=== PATIENT | male | born 1985 | race Caucasian/White ===

== ENCOUNTER 2016-05-28 16:42 | Emergency (ER) | payer OTHER ==
[2016-05-28] MEDS ORDERED: Sodium Chloride 0.9% 1000 ML 1,000 ML IV STA (16:54)
[2016-05-28] MEDS ORDERED: Transderm Scop 1.5MG Patch TOP ONE (16:56)
[2016-05-28] MEDS ORDERED: ANTIVERT 25 MG PO ONE (16:57)
--- NOTE | 2016-05-28 17:04 | ERPHSYRPT ---
- History of Present Illness Source: patient, family Exam Limitations: no limitations Patient Subjective Stated Complaint: pt co infected foot, had a water valve fall on foot 2 weeks ago and now is infected, and has been seen twice for this, pt also states he is dizzy, lightheaded, and nauseated Triage Nursing Assessment: pt walked in alert, resp easy,cool clammy skin. abd soft, right foot between 3 and 4 toe has open sore with serous drainage and bruising noted Method of Injury: other (dropped object on right foot at work, ) Occurred: this morning (not feeling well), last week (injury), days ago ( infected 3-4 days ago) Quality: constant, aching Severity of Pain-Max: severe Severity of Pain-Current: mild Lower Extremities Pain: foot: left (between 3rd and 4th toes dorsum) Modifying Factors: Improves With: other (palpation) Associated Symptoms: dizzy Hx Tetanus, Diphtheria Vaccination/Date Given: Yes Hx Influenza Vaccination/Date Given: No Hx Pneumococcal Vaccination/Date Given: No Immunizations Up to Date: Yes <BRUNO HARDIN - Last Filed: 05/28/16 18:13> <AMERICO CASILLAS - Last Filed: 05/28/16 19:10> - History of Present Illness Time Seen by Provider: 05/28/16 16:44 Physician History: patient complaining of not feeling well today; some dizziness and vertigo; mild non-specific RICHEY; no neck pain; a sore throat; no travel; no knonw exposures; no documented fever; some chills; dropped a valve on his right foot several days ago; xr negative;became infected 3-4 days ago; started on ATBs; wound closed; yesterday he squeezed it and got some purulent drainage; less pain now; nausea without emesis; (BRUNO HARDIN) Allergies/Adverse Reactions: Iodinated Contrast Media - Oral and [Iodinated Contrast Media - IV Dye] Allergy (Verified 05/28/16 16:59) Penicillins Allergy (Verified 05/28/16 16:59) Sulfa (Sulfonamide Antibiotics) Allergy (Verified 05/28/16 16:59) ketorolac tromethamine [From Toradol] Adverse Reaction (Intermediate, Verified 05/28/16 16:59) Muscle Aches tramadol Adverse Reaction (Intermediate, Verified 05/28/16 16:59) Muscle Aches Home Medications: Hydrocodone Bit/Acetaminophen [[place] 7.5-325 Tablet] 1 ea TID 05/28/16 [History] Levofloxacin [Levaquin] 750 mg DAILY 05/28/16 [History] - Review of Systems Constitutional: Chills, Other (dizzy and vertigo with Nausea) Eyes: No Symptoms Ears, Nose, & Throat: Throat Pain, No Ear Pain, No Tinnitus, No Nose Pain, No Epistaxis Respiratory: No Cough, No Dyspnea, No Wheezing Cardiac: No Chest Pain, No Palpitations, No Syncope Abdominal/Gastrointestinal: Nausea, No Abdominal Pain, No Vomiting, No Diarrhea Genitourinary Symptoms: No Symptoms Musculoskeletal: Injury (right foot), No Back Pain, No Neck Pain, No Fall, No Joint Redness Skin: Other (laceration right foot distal between 3-4th toes) Neurological: Dizziness, Headache, Vertigo, No Focal Weakness, No Irritability, No Lethargy, No Paralysis, No Parasthesia, No Seizure Psychological: No Symptoms Endocrine: No Symptoms Hematologic/Lymphatic: No Symptoms Immunological/Allergic: No Symptoms <BRUNO HARDIN - Last Filed: 05/28/16 18:13> - Past Medical History Pertinent Past Medical History: Yes GI Medical History: Hernia, Irritable Bowel Psycho-Social History: Anxiety, Depression - Past Surgical History Past Surgical History: Yes Gastrointestinal: Hernia Repair - Social History Smoking Status: Never smoker Exposure to second hand smoke: No Alcohol Use: Socially Drug Use: none Patient Lives Alone: No Significant Family History: no pertinent family hx <BRUNO HARDIN - Last Filed: 05/28/16 18:13> - Physical Exam General Appearance: moderate distress (not feeling well), alert, anxiety, thin Eyes, Ears, Nose, Throat Exam: normal ENT inspection, TMs normal, pharynx normal , moist mucous membranes Neck Exam: normal inspection, non-tender, supple, full range of motion, No Kernig's, No meningismus, No carotid bruit Cardiovascular/Respiratory Exam: normal breath sounds, heart sounds normal, no ecchymosis, no JVD, no M/R/G, no respiratory distress, tachycardia (105), No chest non-tender, No regular rate/rhythm Gastrointestinal/Abdominal Exam: non-tender, soft, no organomegaly Back Exam: normal inspection, normal range of motion, No CVA tenderness, No vertebral tenderness Hips Exam: bilateral: non-tender, normal inspection, normal range of motion, no evidence of injury Legs Exam: bilateral leg: non-tender, normal inspection, normal range of motion , no evidence of injury Knees Exam: bilateral knee: non-tender, normal inspection, normal range of motion, no evidence of injury Ankle Exam: bilateral ankle: non-tender, normal inspection, normal range of motion, no evidence of injury Foot Exam: right foot: abrasions/lacerations (distal dorsum baase 3-4th toes), left foot: non-tender, normal inspection, no evidence of injury, bilateral foot : normal range of motion, other (no red streaks) DTR - Lower Extremities Exam: knee (R): 4+, knee (L): 4+ Neuro/Tendon Exam: normal sensation, normal motor functions, normal tendon functions, responds to pain Mental Status Exam: alert, oriented x 3, cooperative Skin Exam: normal color, warm, dry, No rash SpO2 Interpretation: normal SpO2: 97 Oxygen Delivery: Room Air <BRUNO HARDIN - Last Filed: 05/28/16 18:13> - Course Nursing assessment & vital signs reviewed: Yes <BRUNO HARDIN - Last Filed: 05/28/16 18:13> <AMERICO CASILLAS - Last Filed: 05/28/16 19:10> Ordered Tests: Active Orders 24 hr Category Date Time Status Accucheck STAT Care 05/28/16 16:54 Active IV Insertion STAT Care 05/28/16 16:54 Active Orthostatic Vital Signs STAT Care 05/28/16 16:56 Active Pulse Oximetry (ED) STAT Care 05/28/16 16:54 Active Re-Check Vital Signs STAT Care 05/28/16 16:54 Active CHEST 1 VIEW (PORTABLE) Stat Exams 05/28/16 16:55 Taken BLOOD CULTURE Stat Lab 05/28/16 17:15 Received CBC W DIFF Stat Lab 05/28/16 17:15 Completed CMP Stat Lab 05/28/16 17:15 Completed CULTURE, THROAT Stat Lab 05/28/16 17:15 Received CULTURE,WOUND Stat Lab 05/28/16 17:15 Received Lactic Acid Urgent Lab 05/28/16 17:28 Completed Manual Differential NC Stat Lab 05/28/16 17:15 Completed STREP SCREEN-BETA A Stat Lab 05/28/16 17:15 Completed UA Stat Lab 05/28/16 17:45 Completed Medication Summary Discontinued Medications Generic Name Dose Route Start Last Admin Trade Name Sherice PRN Reason Stop Dose Admin Sodium Chloride 1,000 mls @ 999 mls/hr 05/28/16 16:54 05/28/16 17:09 Sodium Chloride 0.9% 1000 Ml IV 05/28/16 17:54 999 mls/hr .Q1H1M STA Administration Sodium Chloride Confirm 05/28/16 17:06 Sodium Chloride 0.9% 1000 Ml Administered 05/28/16 17:07 Dose 1,000 mls @ ud .ROUTE .STK-MED ONE Meclizine HCl 25 mg 05/28/16 16:57 05/28/16 17:09 Antivert 25 Mg PO 05/28/16 16:58 25 mg STAT ONE Administration Meclizine HCl Confirm 05/28/16 17:06 Antivert 25 Mg Administered 05/28/16 17:07 Dose 25 mg .ROUTE .STK-MED ONE Ondansetron HCl Confirm 05/28/16 17:06 Zofran 4 Mg/2 Ml Vial Administered 05/28/16 17:07 Dose 4 mg .ROUTE .STK-MED ONE Ondansetron HCl 4 mg 05/28/16 17:15 05/28/16 17:17 Zofran 4 Mg/2 Ml Vial IV 05/28/16 17:16 4 mg STAT ONE Administration Scopolamine HBr 1.5 mg 05/28/16 16:56 05/28/16 17:13 Transderm Scop 1.5mg Patch TOP 05/28/16 16:57 1.5 mg STAT ONE Administration Lab/Rad Data: Laboratory Result Diagrams 05/28/16 17:15 05/28/16 17:15 Laboratory Results 05/28/16 05/28/16 05/28/16 Range/Units 17:45 17:28 17:15 WBC (4.0-10.5) K/mm3 RBC (4.1-5.6) M/mm3 Hgb (12.5-18.0) gm/dl Hct (42-50) % MCV (78-100) fl MCH (26-32) pg MCHC (32-36) g/dl RDW (11.5-14.0) % Plt Count (150-450) K/mm3 MPV (6-9.5) fl Sodium (136-145) mEq/L Potassium (3.5-5.1) mEq/L Chloride (98-107) mEq/L Carbon Dioxide (21-32) mEq/L Anion Gap (5-15) MEQ/L BUN (9-20) mg/dL Creatinine (0.55-1.30) mg/dl Estimated GFR ML/MIN Glucose (70-110) MG/DL Lactic Acid 2.5 H (0.4-2.0) Calcium (8.5-10.1) mg/dL Total Bilirubin (0.2-1.0) mg/dL AST (15-37) U/L ALT (12-78) U/L Alkaline Phosphatase (46-116) U/L Serum Total Protein (6.4-8.2) gm/dL Albumin (3.4-5.0) g/dL Ur Collection Type CLEAN CATCH Urine Color YELLOW (YELLOW) Urine Appearance CLEAR (CLEAR) Urine pH 5.5 (5-6) Ur Specific [place] >=1.030 (1.005-1.025) Urine Protein NEGATIVE (Negative) Urine Glucose (UA) 100 (NEGATIVE) mg/dL Urine Ketones NEGATIVE (NEGATIVE) Urine Nitrite NEGATIVE (NEGATIVE) Urine Bilirubin NEGATIVE (NEGATIVE) Urine Urobilinogen 0.2 (0-1) mg/dL Urine WBC (Auto) NEGATIVE (NEGATIVE) Urine RBC (Auto) NEGATIVE (0-5) [place]/ul Influenza Type A Ag NEGATIVE (NEGATIVE) Influenza Type B Ag NEGATIVE (NEGATIVE) RSV (PCR) NEGATIVE (Negative) Streptococcus Screen (Negative) Specimen Received 05/28/16:1745 05/28/16 05/28/16 05/28/16 Range/Units 17:15 17:15 17:15 WBC 10.0 (4.0-10.5) K/mm3 RBC 5.67 H (4.1-5.6) M/mm3 Hgb 16.6 (12.5-18.0) gm/dl Hct 48.2 (42-50) % MCV 85.0 (78-100) fl MCH 29.2 (26-32) pg MCHC 34.4 (32-36) g/dl RDW 13.0 (11.5-14.0) % Plt Count 301 (150-450) K/mm3 MPV 10.2 H (6-9.5) fl Sodium 144 (136-145) mEq/L Potassium 3.2 L (3.5-5.1) mEq/L Chloride 104 (98-107) mEq/L Carbon Dioxide 25.6 (21-32) mEq/L Anion Gap 17.2 H (5-15) MEQ/L BUN 21 H (9-20) mg/dL Creatinine 1.18 (0.55-1.30) mg/dl Estimated GFR > 60 ML/MIN Glucose 162 H (70-110) MG/DL Lactic Acid (0.4-2.0) Calcium 9.1 (8.5-10.1) mg/dL Total Bilirubin 0.6 (0.2-1.0) mg/dL AST 12 L (15-37) U/L ALT 14 (12-78) U/L Alkaline Phosphatase 71 (46-116) U/L Serum Total Protein 7.7 (6.4-8.2) gm/dL Albumin 3.8 (3.4-5.0) g/dL Ur Collection Type Urine Color (YELLOW) Urine Appearance (CLEAR) Urine pH (5-6) Ur Specific [place] (1.005-1.025) Urine Protein (Negative) Urine Glucose (UA) (NEGATIVE) mg/dL Urine Ketones (NEGATIVE) Urine Nitrite (NEGATIVE) Urine Bilirubin (NEGATIVE) Urine Urobilinogen (0-1) mg/dL Urine WBC (Auto) (NEGATIVE) Urine RBC (Auto) (0-5) [place]/ul Influenza Type A Ag (NEGATIVE) Influenza Type B Ag (NEGATIVE) RSV (PCR) (Negative) Streptococcus Screen NEGATIVE (Negative) Specimen Received reviewed (BRUNO HARDIN) - Progress Progress: improved (after meds and IV fluids), re-examined (after meds) Counseled pt/family regarding: lab results, diagnosis, need for follow-up <BRUNO HARDIN - Last Filed: 05/28/16 18:13> <AMERICO CASILLAS - Last Filed: 05/28/16 19:10> - Progress Progress Note: 05/28/16 17:10 IV started; OSVS done with slight increase in pulse; no drop in BP; will give IV bolus of fluid; place a TDS patch and give antivert and zofran and recheck; labs pending;cultures obtained 05/28/16 17:40 rechecked and lactic acid 2.5; GIVING IV FLuid bolus; patient still dizzy when gets up but better; feels better in general after 300 cc fluid and meds; will continue IV fluids and recheck; other labs and xr pending 05/28/16 17:43 CBC wbc = 10.0; h/h = 16.6/48.2 05/28/16 18:14 [place] here and will assume care and arrange appropriate d/c based on recheck and labs (BRUNO HARDIN) 05/28/16 19:01 The patient was initially seen per Dr Hardin. He had foot injury with normal xray then had abscess, drained and on levaquin. Today he has ringing in left ear , vertiginous dizziness, nausea. Was pale and sweaty so was brought to ER. Better now with IVF and zofran and antivert and scopolamine. No headache or chest pain. No fever. [place] hot at home. No hx of DM but has fam hx. PE: Awake and alert. PERRL. No nystagmus. O-P clear with bifid uvula. Neck supple. TM's normal. Neck supple. Chest clear. Cor reg without murmur. Abd soft and nontender. Normal male genitalia. 2+ femoral pulses. Extermities have small excoriated lesion with bloody drng right foot. No redness or large abscess. Neuro: awake and alert. normal station and gait. Normal tandem walk, toe walk, heel walk. Negative rhomberg. A/P:1) resolving small abscess right foot on levaquin. No sign of systemic infection. Continue epson salt soaks and levaquin. 2) vertigo: possible meniere's. Advised watch salt, scopalamine, antivert, and followup. May need ENT. NEuro imaging not indicated. Plan discussed with pt and family. 3) hyperglycemia/glucosuria. A1C pending. Advised follow up for further glucose testing. (AMERICO CASILLAS) <BRUNO HARDIN - Last Filed: 03/06/17 18:13> - Departure Time of Disposition: 19:06 Departure Disposition: Home Critical Care Time: No <AMERICO CASILLAS - Last Filed: 05/28/16 19:10> - Departure Clinical Impression: Vertigo, Foot abscess, right, Borderline hyperglycemia Condition: Stable Referrals: ELISE SAUER [NON-STAFF PHY W/O PRIVILEGES] - Instructions: Vertigo, Incision and Drainage of a Skin Abscess Additional Instructions: No driving and stay with family. Watch salt. Get your sugar rechecked. Epson slat soaks to foot three times a day. Continue levaquin. Rx antivert. Rx scopalamine patch. Prescriptions: Meclizine HCl 25 mg [Antivert 25 mg] 1 tab PO Q6H PRN PRN #24 tablet PRN Reason: dizziness
[2016-05-28] MEDS ORDERED: ANTIVERT 25 MG ONE (17:06)
[2016-05-28] MEDS ORDERED: Zofran 4 MG/2 ML VIAL ONE (17:06)
[2016-05-28] MEDS ORDERED: Sodium Chloride 0.9% 1000 ML 1,000 ML ONE (17:06)
[2016-05-28] MEDS ORDERED: Zofran 4 MG/2 ML VIAL IV ONE (17:15)
[2016-05-28 17:37] LABS: Mean Platelet Volume 10.2 fl (6-9.5); Platelet Count 301 K/mm3 (150-450); Red Blood Count 5.67 M/mm3 (4.1-5.6)
[2016-05-28 17:39] LABS: Mean Corpuscular Hemoglobin 29.2 pg (26-32)
[2016-05-28 17:53] LABS: ALBUMIN 3.8 g/dL (3.4-5.0); ALKALINE PHOSPHATASE 71 U/L (46-116); ANION GAP 17.2 MEQ/L (5-15); BILIRUBIN,TOTAL 0.6 mg/dL (0.2-1.0); BLOOD UREA NITROGEN 21 mg/dL (9-20); CHLORIDE 104 mEq/L (98-107); Carbon Dioxide 25.6 mEq/L (21-32); Glucose 162 MG/DL (70-110); Potassium 3.2 mEq/L (3.5-5.1); SGOT/AST 12 U/L (15-37); SGPT/ALT 14 U/L (12-78); SODIUM 144 mEq/L (136-145); Total Protein 7.7 gm/dL (6.4-8.2)
[2016-05-28 17:53] LABS: COMPLETE URINE MICROSCOPIC? NO; Collection Type CLEAN CATCH; Ph 5.5 (5-6)
[2016-05-28 18:17] VITALS: O2SAT 98
[2016-05-28 19:23] VITALS: BP 142/68; PULSE 90
[2016-05-28 19:31] LABS: ATYPICAL LYMPHS 2 %; Eosinophil 5 % (0.00-3.0); Platelet Estimate NORMAL (NORMAL); Total Cells Counted 100
--- NOTE | 2016-05-29 08:36 | XRAY ---
Indication: Fever and cough. Comparison: March 16, 2016. Portable chest again demonstrates normal heart and lungs. Bony thorax intact.
== END 2016-05-28 19:29 | disposition home or self-care (01) ==
LOC: ED 16:42
DX: R42 Dizziness and giddiness (principal); L02.611 Cutaneous abscess of right foot; R73.9 Hyperglycemia, unspecified; R11.0 Nausea
CPT/HCPCS: 36000; 36415; 71010; 80053; 81002; 82962; 83036; 83605; 85025; 87040; 87070; 87077; 87186; 87430; 87631; 96360; 96374; 99284; J2405

== ENCOUNTER 2016-11-30 07:34 | Emergency (ER) | payer OTHER ==
[2016-11-30 07:46] VITALS: BP 140/90
[2016-11-30] MEDS ORDERED: Augmentin 875-125 Tablet PO ONE (08:03)
[2016-11-30] MEDS ORDERED: NORCO 5/325 MG PO ONE (08:03)
[2016-11-30] MEDS ORDERED: Augmentin 875-125 Tablet ONE (08:08)
[2016-11-30] MEDS ORDERED: NORCO 5/325 MG ONE (08:08)
--- NOTE | 2016-11-30 08:11 | ERPHSYRPT ---
- History of Present Illness Time Seen by Provider: 11/30/16 08:04 Source: patient Patient Subjective Stated Complaint: had tooth pulled 2 1/2 weeks ago on lower right side and had dry socket and infection, pt now co pain to mouth.states aches all over Triage Nursing Assessment: pt alert,walked in, resp easy, skin w/d no reddness or drainage ntoed Physician History: 31 y/o male comes to the ER with complaints of lower right tooth pain after having the tooth pulled 1.5 weeks ago. Pt admits to still having pain. Pt describes the pain as sharp, constant, 8/10, with radiation to sinuses and not relieved by one vicodin. No fever or chills. Timing/Duration: gradual onset Severity: severe ENT Location: dental Allergies/Adverse Reactions: Iodinated Contrast- Oral and IV Dye [Iodinated Contrast Media - IV Dye] Allergy (Verified 11/30/16 08:02) Penicillins Allergy (Verified 11/30/16 08:02) Sulfa (Sulfonamide Antibiotics) Allergy (Verified 11/30/16 08:02) ketorolac tromethamine [From Toradol] Adverse Reaction (Intermediate, Verified 11/30/16 08:02) Muscle Aches tramadol Adverse Reaction (Intermediate, Verified 11/30/16 08:02) Muscle Aches Home Medications: Hydrocodone Bit/Acetaminophen [[place] 7.5-325 Tablet] 1 ea TID 05/28/16 [History] Levofloxacin [Levaquin] 750 mg DAILY 05/28/16 [History] Hx Tetanus, Diphtheria Vaccination/Date Given: Yes Hx Influenza Vaccination/Date Given: No Hx Pneumococcal Vaccination/Date Given: No Immunizations Up to Date: Yes - Review of Systems Constitutional: No Fever, No Chills Eyes: No Symptoms Ears, Nose, & Throat: No Symptoms, Mouth Pain Respiratory: No Cough, No Dyspnea Cardiac: No Chest Pain, No Edema, No Syncope Abdominal/Gastrointestinal: No Abdominal Pain, No Nausea, No Vomiting, No Diarrhea Genitourinary Symptoms: No Dysuria Musculoskeletal: No Back Pain, No Neck Pain Skin: No Rash Neurological: No Dizziness, No Focal Weakness, No Sensory Changes Psychological: No Symptoms Endocrine: No Symptoms All Other Systems: Reviewed and Negative - Past Medical History Pertinent Past Medical History: Yes GI Medical History: Hernia, Irritable Bowel Psycho-Social History: Anxiety, Depression Other Medical History: mrsa - Past Surgical History Past Surgical History: Yes Gastrointestinal: Hernia Repair - Social History Smoking Status: Never smoker Exposure to second hand smoke: No Alcohol Use: Socially Drug Use: none Patient Lives Alone: No Significant Family History: no pertinent family hx - Nursing Vital Signs Nursing Vital Signs: Initial Vital Signs Temperature 98.3 F 11/30/16 07:39 Pulse Rate 98 H 11/30/16 07:39 Respiratory Rate 16 11/30/16 07:39 Blood Pressure 140/90 11/30/16 07:39 O2 Sat by Pulse Oximetry 100 11/30/16 07:39 Pain Scale Pain Intensity 10 - Physical Exam General Appearance: no apparent distress, alert Eye Exam: bilateral eye: PERRL, EOMI Nasal Exam: normal inspection Throat Exam: pharynx normal, dental tenderness, moist mucus membranes, No tonsillar exudate Neck Exam: supple Cardiovascular/Respiratory Exam: normal breath sounds, regular rate/rhythm Abdominal Exam: non-tender, soft Neurologic Exam: alert, oriented x 3, sensation nml, No motor deficits Skin Exam: normal color, warm, dry SpO2: 100 Oxygen Delivery: Room Air - Course Nursing assessment & vital signs reviewed: Yes Ordered Tests: Medication Summary Discontinued Medications Generic Name Dose Route Start Last Admin Trade Name Freq PRN Reason Stop Dose Admin Amoxicillin/Clavulanate Potassium 875 mg 11/30/16 08:03 Augmentin 875-125 Tablet PO 11/30/16 08:04 STAT ONE - Progress Progress: unchanged Progress Note: 11/30/16 08:08 Pt will be given a dose of augmentin and a dose of norco. We called the dentist office and patient has been prescribed multiple scripts for vicodin. Pt will be given a referral to diesel scoop operator, Dr Quintanilla for further evaluation. - Departure Time of Disposition: 08:11 Departure Disposition: Home Clinical Impression: Tooth infection Condition: Stable Critical Care Time: No Referrals: ELISE SAUER [Primary Care Provider] - Instructions: Tooth Decay Additional Instructions: Call Dr Patricia Quintanilla, diesel scoop operator in [place] this morning. Prescriptions: Amoxicillin/Potassium Clav [Augmentin 875-125 Tablet] 875 mg PO BID #19 tablet
[2016-11-30 08:22] VITALS: PULSE 70; O2SAT 97
== END 2016-11-30 08:24 | disposition home or self-care (01) ==
LOC: ED 07:34
DX: K04.7 Periapical abscess without sinus (principal)
CPT/HCPCS: 99283; 99284; A9270-GY

== ENCOUNTER 2018-06-20 08:00 | Observation (INO) | payer OTHER ==
[2018-06-20] MEDS ORDERED: Sodium Chloride 0.9% 1000 ML 1,000 ML IV STA ×2 (08:10→10:23)
[2018-06-20] MEDS ORDERED: Ativan 2 MG/1 ML VIAL IV ONE ×3 (08:16→09:02)
[2018-06-20 08:23] LABS: BASOPHIL % 0.2 % (0.0-0.4); Basophil (Absolute #) 0.02 (0-0.4); Eosinophil (Absolute #) 0.18 (0-0.5); Granulocyte Absolute (ANC) 6.42 (1.4-6.9); Granulocytes % 71.6 % (36.0-66.0); Hematocrit 42.4 % (42-50); Hemoglobin 14.4 gm/dl (12.5-18.0); Lymphocyte (Absolute #) 1.78 (1.0-4.6); Lymphocytes % 19.9 % (24.0-44.0); Mean Cell Volume 84.5 fl (78-100); Mean Corpuscular Hemoglobin 28.7 pg (26-32); Mean Platelet Volume 9.7 fl (6-9.5); Monocyte (Absolute #) 0.56 (0.0-1.3); Monocytes % 6.3 % (0.0-12.0); Platelet Count 269 K/mm3 (150-450); Red Blood Count 5.02 M/mm3 (4.1-5.6); Red Cell Distribution Width 13.4 % (11.5-14.0)
[2018-06-20] MEDS ORDERED: Ativan 2 MG/1 ML VIAL ONE ×3 (08:30→08:55)
[2018-06-20] MEDS ORDERED: Sodium Chloride 0.9% 1000 ML 1,000 ML ONE ×2 (08:31→10:16)
[2018-06-20 08:32] LABS: INR 1.24 (0.8-3.0); PROTIME 14.4 SECONDS (8.83-12.87)
[2018-06-20 08:40] LABS: Appearance SLIGHTLY CLOUDY (CLEAR); Bacteria FEW /HPF (NEGATIVE); Bilirubin NEGATIVE (NEGATIVE); Blood NEGATIVE Ery/ul (0-5); Epithelial Cells FEW /HPF (FEW); Glucose NEGATIVE (NEGATIVE); Ketones SMALL (NEGATIVE); Leukocyte Esterase NEGATIVE (NEGATIVE); Mucus MODERATE /HPF (NEGATIVE); Nitrite NEGATIVE (NEGATIVE); Protein,Urine Dip 30 (Negative); Specific Gravity 1.027 (1.005-1.025); Urobilinogen 2 mg/dL (0-1)
[2018-06-20 08:41] LABS: Sperm PRESENT /HPF (NEGATIVE)
--- NOTE | 2018-06-20 08:42 | ERPHSYRPT ---
- History of Present Illness Time Seen by Provider: 06/20/18 08:30 Source: patient Exam Limitations: clinical condition Physician History: PATIENT WITH A HISTORY OF POLYSUBSTANCE WAS FOUND IN A [place]IDENT[place]S [place] THIS MORNING WHO CALLED POLICE TO HER HOME. PATIENT HAS BEEN HAVING AUDIBLE AND VISUAL HALLUCINATIONS AND IS NOT AWARE OF HOW HE ARRIVED AT THE PREMISES. HE DENIES ASSOCIATE FALL, TRAUMA, HEAD OR NECK INJURY. Timing/Duration: today Severity of Symptoms-Max: severe Severity of Symptoms-Current: severe Context related to: other (SUBSTANCE ABUSE) Suicidal thoughts: other (CHURPING LIKE A CHICKEN) Allergies/Adverse Reactions: Iodinated Contrast- Oral and IV Dye [Iodinated Contrast Media - IV Dye] Allergy (Verified 11/30/16 08:02) Penicillins Allergy (Verified 11/30/16 08:02) Sulfa (Sulfonamide Antibiotics) Allergy (Verified 11/30/16 08:02) ketorolac tromethamine [From Toradol] Adverse Reaction (Intermediate, Verified 11/30/16 08:02) Muscle Aches tramadol Adverse Reaction (Intermediate, Verified 11/30/16 08:02) Muscle Aches Home Medications: Hydrocodone Bit/Acetaminophen [[place] 7.5-325 Tablet] 1 ea TID 05/28/16 [History] Levofloxacin [Levaquin] 750 mg DAILY 05/28/16 [History] Hx Tetanus, Diphtheria Vaccination/Date Given: Yes Hx Influenza Vaccination/Date Given: No Hx Pneumococcal Vaccination/Date Given: No - Past Medical History Pertinent Past Medical History: Yes GI Medical History: Hernia, Irritable Bowel Psycho-Social History: Anxiety, Depression Other Medical History: mrsa - Past Surgical History Past Surgical History: Yes Gastrointestinal: Hernia Repair - Social History Smoking Status: Never smoker Exposure to second hand smoke: No Alcohol Use: Socially Drug Use: none Patient Lives Alone: No Significant Family History: no pertinent family hx - Nursing Vital Signs Nursing Vital Signs: Initial Vital Signs Temperature 98.7 F 06/20/18 08:05 Pulse Rate 120 H 06/20/18 08:05 Respiratory Rate 24 06/20/18 08:05 Blood Pressure 148/92 06/20/18 08:05 O2 Sat by Pulse Oximetry 98 06/20/18 08:05 Pain Scale Pain Intensity 0 - Course EKG Interpreted by Me: RATE, Sinus Rhythm, NORMAL AXIS - Radiology Exams Chest X-ray Interpretation: Discussed w/ radiologist, Negative - CT Exams Head CT Interpretation: Discussed w/radiologist, No/Intracranial Hemorrhag Ordered Tests: Active Orders 24 hr Category Date Time Status Shoe Repair Cobbler STAT Care 06/20/18 08:11 Active EKG-ER Only STAT Care 06/20/18 08:10 Active Oxygen-ED Only Nasal Cannula 2 lpm Care 06/20/18 08:17 Active CHEST 1 VIEW (PORTABLE) Stat Exams 06/20/18 08:12 Completed HEAD WITHOUT CONTRAST [CT] Stat Exams 06/20/18 08:47 Completed ACETAMINOPHEN Stat Lab 06/20/18 08:15 Completed CBC W DIFF Stat Lab 06/20/18 08:15 Completed CMP Stat Lab 06/20/18 08:15 Completed ETHYL ALCOHOL Stat Lab 06/20/18 08:15 Completed PROTIME WITH INR Stat Lab 06/20/18 08:15 Completed SALICYLATE Stat Lab 06/20/18 08:15 Completed TROPONIN Q3H Lab 06/20/18 08:15 Completed TROPONIN Q3H Lab 06/20/18 11:15 Ordered TROPONIN Q3H Lab 06/20/18 14:15 Ordered TROPONIN Q3H Lab 06/20/18 17:15 Ordered TROPONIN Q3H Lab 06/20/18 20:15 Ordered UA W/RFX UR CULTURE Stat Lab 06/20/18 08:32 Completed Urine Triage Profile Stat Lab 06/20/18 08:32 Completed Medication Summary Discontinued Medications Generic Name Dose Route Start Last Admin Trade Name Freq PRN Reason Stop Dose Admin Sodium Chloride 1,000 mls @ 999 mls/hr 06/20/18 08:10 06/20/18 09:50 Sodium Chloride 0.9% 1000 Ml IV 06/20/18 09:10 Infused .Q1H1M STA Infusion Sodium Chloride Confirm 06/20/18 08:31 Sodium Chloride 0.9% 1000 Ml Administered 06/20/18 08:32 Dose 1,000 mls @ ud .ROUTE .STK-MED ONE Lorazepam 2 mg 06/20/18 08:16 06/20/18 08:36 Ativan 2 Mg/1 Ml Vial IV 06/20/18 08:17 2 mg STAT ONE Administration Lorazepam Confirm 06/20/18 08:30 Ativan 2 Mg/1 Ml Vial Administered 06/20/18 08:31 Dose 2 mg .ROUTE .STK-MED ONE Lorazepam 4 mg 06/20/18 08:42 06/20/18 08:48 Ativan 2 Mg/1 Ml Vial IV 06/20/18 08:43 4 mg STAT ONE Administration Lorazepam Confirm 06/20/18 08:46 Ativan 2 Mg/1 Ml Vial Administered 06/20/18 08:47 Dose 4 mg .ROUTE .STK-MED ONE Lorazepam Confirm 06/20/18 08:55 Ativan 2 Mg/1 Ml Vial Administered 06/20/18 08:56 Dose 4 mg .ROUTE .STK-MED ONE Lorazepam 4 mg 06/20/18 09:02 Ativan 2 Mg/1 Ml Vial IV 06/20/18 09:03 STAT ONE Lab/Rad Data: Laboratory Result Diagrams 06/20/18 08:15 06/20/18 08:15 Laboratory Results 06/20/18 06/20/18 06/20/18 Range/Units 08:32 08:32 08:15 WBC (4.0-10.5) K/mm3 RBC (4.1-5.6) M/mm3 Hgb (12.5-18.0) gm/dl Hct (42-50) % MCV (78-100) fl MCH (26-32) pg MCHC (32-36) g/dl RDW (11.5-14.0) % Plt Count (150-450) K/mm3 MPV (6-9.5) fl Gran % (36.0-66.0) % Eos # (Auto) (0-0.5) Absolute Lymphs (auto) (1.0-4.6) Absolute Monos (auto) (0.0-1.3) Lymphocytes % (24.0-44.0) % Monocytes % (0.0-12.0) % Eosinophils % (0.00-5.0) % Basophils % (0.0-0.4) % Absolute Granulocytes (1.4-6.9) Basophils # (0-0.4) PT (8.83-12.87) SECONDS INR (0.8-3.0) Sodium (137-145) mmol/L Potassium (3.5-5.1) mmol/L Chloride (98-107) mmol/L Carbon Dioxide (22-30) mmol/L Anion Gap (5-15) MEQ/L BUN (9-20) mg/dL Creatinine (0.66-1.25) mg/dL Estimated GFR ML/MIN Glucose (74-106) mg/dL Calcium (8.4-10.2) mg/dL Total Bilirubin (0.2-1.3) mg/dL AST (17-59) U/L ALT (0-50) U/L Alkaline Phosphatase (38-126) U/L Troponin I < 0.012 (0.000-0.034) ng/mL Serum Total Protein (6.3-8.2) g/dL Albumin (3.5-5.0) g/dL Urine Color YELLOW (YELLOW) Urine Appearance SLIGHTLY CLOUDY (CLEAR) Urine pH 5.0 (5-6) Ur Specific [place] 1.027 (1.005-1.025) Urine Protein 30 (Negative) Urine Ketones SMALL (NEGATIVE) Urine Blood NEGATIVE (0-5) Haja/ul Urine Nitrite NEGATIVE (NEGATIVE) Urine Bilirubin NEGATIVE (NEGATIVE) Urine Urobilinogen 2 (0-1) mg/dL Ur Leukocyte Esterase NEGATIVE (NEGATIVE) Urine WBC (Auto) 3-5 (0-5) /HPF Urine RBC (Auto) 6-10 (0-2) /HPF U Hyaline Cast (Auto) 3-5 (0-2) /LPF U Epithel Cells (Auto) FEW (FEW) /HPF Urine Bacteria (Auto) FEW (NEGATIVE) /HPF Other Casts (Auto) >50 (NEGATIVE) /LPF Urine Mucus (Auto) MODERATE (NEGATIVE) /HPF Urine Sperm (Auto) PRESENT (NEGATIVE) /HPF Urine Culture Reflexed NO (NO) Urine Glucose NEGATIVE (NEGATIVE) mg/dL Salicylates (2-20) mg/dL Urine Opiates Level NEGATIVE (NEGATIVE) Ur Methadone NEGATIVE (NEGATIVE) Acetaminophen (10-30) ug/ml Urine Barbiturates NEGATIVE (NEGATIVE) Ur Phencyclidine (PCP) NEGATIVE (NEGATIVE) Urine Amphetamine POSITIVE (NEGATIVE) U Benzodiazepine Level NEGATIVE (NEGATIVE) Urine Cocaine NEGATIVE (NEGATIVE) Urine Marijuana (THC) NEGATIVE (NEGATIVE) Ethyl Alcohol (0-10) mg/dL 06/20/18 06/20/18 06/20/18 Range/Units 08:15 08:15 08:15 WBC 9.0 (4.0-10.5) K/mm3 RBC 5.02 (4.1-5.6) M/mm3 Hgb 14.4 (12.5-18.0) gm/dl Hct 42.4 (42-50) % MCV 84.5 (78-100) fl MCH 28.7 (26-32) pg MCHC 34.0 (32-36) g/dl RDW 13.4 (11.5-14.0) % Plt Count 269 (150-450) K/mm3 MPV 9.7 H (6-9.5) fl Gran % 71.6 H (36.0-66.0) % Eos # (Auto) 0.18 (0-0.5) Absolute Lymphs (auto) 1.78 (1.0-4.6) Absolute Monos (auto) 0.56 (0.0-1.3) Lymphocytes % 19.9 L (24.0-44.0) % Monocytes % 6.3 (0.0-12.0) % Eosinophils % 2.0 (0.00-5.0) % Basophils % 0.2 (0.0-0.4) % Absolute Granulocytes 6.42 (1.4-6.9) Basophils # 0.02 (0-0.4) PT 14.4 H (8.83-12.87) SECONDS INR 1.24 (0.8-3.0) Sodium 144 (137-145) mmol/L Potassium 3.4 L (3.5-5.1) mmol/L Chloride 109 H (98-107) mmol/L Carbon Dioxide 23 (22-30) mmol/L Anion Gap 15.9 H (5-15) MEQ/L BUN 17 (9-20) mg/dL Creatinine 1.03 (0.66-1.25) mg/dL Estimated GFR > 60.0 ML/MIN Glucose 102 (74-106) mg/dL Calcium 9.9 (8.4-10.2) mg/dL Total Bilirubin 2.50 H (0.2-1.3) mg/dL AST 24 (17-59) U/L ALT 21 (0-50) U/L Alkaline Phosphatase 71 (38-126) U/L Troponin I (0.000-0.034) ng/mL Serum Total Protein 7.5 (6.3-8.2) g/dL Albumin 4.5 (3.5-5.0) g/dL Urine Color (YELLOW) Urine Appearance (CLEAR) Urine pH (5-6) Ur Specific [place] (1.005-1.025) Urine Protein (Negative) Urine Ketones (NEGATIVE) Urine Blood (0-5) Haja/ul Urine Nitrite (NEGATIVE) Urine Bilirubin (NEGATIVE) Urine Urobilinogen (0-1) mg/dL Ur Leukocyte Esterase (NEGATIVE) Urine WBC (Auto) (0-5) /HPF Urine RBC (Auto) (0-2) /HPF U Hyaline Cast (Auto) (0-2) /LPF U Epithel Cells (Auto) (FEW) /HPF Urine Bacteria (Auto) (NEGATIVE) /HPF Other Casts (Auto) (NEGATIVE) /LPF Urine Mucus (Auto) (NEGATIVE) /HPF Urine Sperm (Auto) (NEGATIVE) /HPF Urine Culture Reflexed (NO) Urine Glucose (NEGATIVE) mg/dL Salicylates < 1.0 L (2-20) mg/dL Urine Opiates Level (NEGATIVE) Ur Methadone (NEGATIVE) Acetaminophen < 10 L (10-30) ug/ml Urine Barbiturates (NEGATIVE) Ur Phencyclidine (PCP) (NEGATIVE) Urine Amphetamine (NEGATIVE) U Benzodiazepine Level (NEGATIVE) Urine Cocaine (NEGATIVE) Urine Marijuana (THC) (NEGATIVE) Ethyl Alcohol < 10 (0-10) mg/dL - Progress Progress Note: 06/20/18 10:14 ADMINISTERED IV NORMAL SALINE 1 LITER/HR ATIVAN 2MG, TITRATED UP TO A TOTAL DOSE 10MG FOR AGITATION Discussed with Dr.: Keith (DISCUSSED WITH DR KEITH AT 1000 FOR ICU OBSERVATION) - Departure Departure Disposition: Observation Clinical Impression: ACUTE PSYCHOSIS/POLYSUBSTANCE ABUSE Condition: Stable Critical Care Time: No Referrals: ELISE SAUER [Primary Care Provider] -
[2018-06-20 08:44] LABS: ACETAMINOPHEN < 10 ug/ml (10-30); ALBUMIN 4.5 g/dL (3.5-5.0); ALKALINE PHOSPHATASE 71 U/L (38-126); ANION GAP 15.9 MEQ/L (5-15); BLOOD UREA NITROGEN 17 mg/dL (9-20); CHLORIDE 109 mmol/L (98-107); Calcium 9.9 mg/dL (8.4-10.2); Carbon Dioxide 23 mmol/L (22-30); Creatinine 1 1.03 mg/dL (0.66-1.25); ETHYL ALCOHOL < 10 mg/dL (0-10); Glucose 102 mg/dL (74-106); Potassium 3.4 mmol/L (3.5-5.1); SALICYLATE < 1.0 mg/dL (2-20); SGOT/AST 24 U/L (17-59); SGPT/ALT 21 U/L (0-50); SODIUM 144 mmol/L (137-145); Total Protein 7.5 g/dL (6.3-8.2)
[2018-06-20 08:55] LABS: Barbiturate,Urine NEGATIVE (NEGATIVE); Benzodiazepine,Urine NEGATIVE (NEGATIVE); Cocaine,Urine NEGATIVE (NEGATIVE); Methadone,Urine NEGATIVE (NEGATIVE); Opiate,Urine NEGATIVE (NEGATIVE); PCP,Urine NEGATIVE (NEGATIVE); THC,Urine NEGATIVE (NEGATIVE)
--- NOTE | 2018-06-20 09:05 | XRAY ---
Indication: Cough. Overdose. Comparison: May 28, 2016. Portable chest does not completely include left costophrenic angle. Remaining heart and lungs normal with a few incidental calcified granulomas. Bony thorax intact. No new/acute findings.
[2018-06-20 09:21] LABS: Amphetamine,Urine POSITIVE (NEGATIVE)
--- NOTE | 2018-06-20 09:28 | XRAY ---
Indication: Confusion. Multiple contiguous axial images obtained through the head without contrast. Comparison: None Images through base of the brain degraded by motion artifact even with repeat CT. No gross acute intracranial hemorrhage, abnormal extra-axial fluid collection, or mass effect. Fourth ventricle is midline without hydrocephalus. Byrne-white matter differentiation preserved. Bony calvarium is grossly intact. Visualized paranasal sinuses and mastoid air cells are clear. Impression: Limited exam due to motion artifact. No gross acute intracranial abnormalities. CT DI 84.14
[2018-06-20] MEDS ORDERED: TYLENOL 325 MG PO PRN (10:25)
[2018-06-20] MEDS ORDERED: Zofran 4 MG/2 ML VIAL IV PRN (10:25)
[2018-06-20] MEDS: Ativan 2 MG/1 ML VIAL IV PRN ×5 (11:10→20:12)
[2018-06-20] MEDS: Sodium Chloride 0.9% W/ 20 mEq KCl/LITER 1,000 ML IV SCH ×2 (11:52→18:44)
[2018-06-20] MEDS: ENOXAPARIN SODIUM SQ SCH (20:11)
[2018-06-21] MEDS: Sodium Chloride 0.9% W/ 20 mEq KCl/LITER 1,000 ML IV SCH ×2 (01:10→10:00)
[2018-06-21] MEDS: Ativan 2 MG/1 ML VIAL IV PRN (02:46)
[2018-06-21 05:29] LABS: Hematocrit 39.2 % (42-50); Hemoglobin 12.9 gm/dl (12.5-18.0); Mean Cell Volume 87.1 fl (78-100); Mean Corpuscular Hemoglobin 28.7 pg (26-32); Mean Corpuscular Hgb Concent. 32.9 g/dl (32-36); Mean Platelet Volume 9.3 fl (6-9.5); Platelet Count 217 K/mm3 (150-450); Red Cell Distribution Width 13.6 % (11.5-14.0); White Blood Count 6.9 K/mm3 (4.0-10.5)
[2018-06-21 06:01] LABS: ALBUMIN 3.3 g/dL (3.5-5.0); ALKALINE PHOSPHATASE 53 U/L (38-126); BLOOD UREA NITROGEN 9 mg/dL (9-20); CHLORIDE 110 mmol/L (98-107); Calcium 8.8 mg/dL (8.4-10.2); Carbon Dioxide 24 mmol/L (22-30); Creatinine 1 0.75 mg/dL (0.66-1.25); Glucose 85 mg/dL (74-106); Potassium 4.3 mmol/L (3.5-5.1); SGOT/AST 19 U/L (17-59); SGPT/ALT 16 U/L (0-50); SODIUM 140 mmol/L (137-145); Total Protein 5.8 g/dL (6.3-8.2)
[2018-06-21] MEDS: ENOXAPARIN SODIUM SQ SCH (10:12)
--- NOTE | 2018-06-21 12:20 | PCM.SSS ---
History of Present Illness - Chief Complaint Chief Complaint: c/o agitation and possible drug abuse History of Present Illness: is a 33 year old male.came to Emergency room with agitation. - Review of Systems Constitutional: No Fever, No Chills Eyes: No Symptoms Ears, Nose, & Throat: No Symptoms Respiratory: No Cough, No Short Of Breath Cardiac: No Chest Pain, No Edema, No Syncope Abdominal/Gastrointestinal: No Abdominal Pain, No Nausea, No Vomiting, No Diarrhea Genitourinary Symptoms: No Dysuria Musculoskeletal: No Back Pain, No Neck Pain Skin: No Rash Neurological: No Dizziness, No Focal Weakness, No Sensory Changes Psychological: No Symptoms Endocrine: No Symptoms Hematologic/Lymphatic: No Symptoms Immunological/Allergic: No Symptoms Medications & Allergies Home Medications: Home Medication List No Reportable Medications [No Reported Medications] 06/20/18 [History Confirmed 06/20/18] Allergies/Adverse Reactions: Allergies Allergy/AdvReac Type Severity Reaction Status Date / Time Iodinated Contrast- Oral and Allergy Verified 11/30/16 08:02 IV Dye [Iodinated Contrast Media - IV Dye] Penicillins Allergy Verified 11/30/16 08:02 Sulfa (Sulfonamide Allergy Verified 11/30/16 08:02 Antibiotics) ketorolac tromethamine AdvReac Intermediate Muscle Verified 11/30/16 08:02 [From Toradol] Aches tramadol AdvReac Intermediate Muscle Verified 11/30/16 08:02 Aches - Past Medical History Past Medical History: Yes Neurological History: No Pertinent History ENT History: No Pertinent History Cardiac History: No Pertinent History Respiratory History: No Pertinent History Endocrine Medical History: No Pertinent History Musculoskelatal History: No Pertinent History GI Medical History: Hernia, Irritable Bowel History: No Pertinent History Pyscho-Social History: Anxiety, Depression Male Reproductive Disorders: No Pertinent History Comment: mrsa - Past Surgical History Past Surgical History: Yes Neuro Surgical History: No Pertinent History Cardiac History: No Pertinent History Respiratory Surgery: No Pertinent History GI Surgical History: Hernia Repair Genitourinary Surgical Hx: No Pertinent History Musculskeletal Surgical Hx: No Pertinent History Male Surgical History: No Pertinent History - Social History Smoking Status: Unknown if ever smoked Exposure to second hand smoke: No Alcohol: Occasionally Drug Use: bath salts, methamphetamines Significant Family History: no pertinent family hx - Physical Exam Vital Signs: Vital Signs - 24 hr Temp Pulse Resp BP Pulse Ox 06/21/18 12:00 79 06/21/18 08:00 108 H 06/21/18 07:24 97.6 F 84 20 124/96 97 06/21/18 04:00 97.9 F 79 15 128/87 98 06/21/18 00:01 86 06/20/18 23:48 98.0 F 86 16 127/79 98 06/20/18 19:54 94 H 06/20/18 19:51 98.3 F 94 H 18 117/72 96 06/20/18 15:59 98 F 74 17 122/77 98 06/20/18 14:00 100 H 18 113/52 96 Oxygen-Last 24 hours O2 Percentage 2 Liters = 28% General Appearance: no apparent distress, alert Neurologic Exam: alert, oriented x 3, cooperative, normal mood/affect, nml cerebellar function, nml station & gait, sensation nml, No motor deficits Eye Exam: PERRL/EOMI, eyes nml inspection Ears, Nose, Throat Exam: normal ENT inspection, TMs normal, pharynx normal, moist mucous membranes Neck Exam: normal inspection, non-tender, supple, full range of motion Respiratory Exam: normal breath sounds, lungs clear, No respiratory distress Cardiovascular Exam: regular rate/rhythm, normal heart sounds, normal peripheral pulses Gastrointestinal/Abdomen Exam: soft, normal bowel sounds, No tenderness, No mass Back Exam: normal inspection, normal range of motion, No CVA tenderness, No vertebral tenderness Extremity Exam: normal inspection, normal range of motion, pelvis stable Skin Exam: normal color, warm, dry, No rash Lymphatic Exam: No adenopathy Results - Labs Lab/Micro Results: Lab Results-Last 24 Hours 06/20/18 06/20/18 06/20/18 Range/Units 14:10 17:15 20:18 WBC (4.0-10.5) K/mm3 RBC (4.1-5.6) M/mm3 Hgb (12.5-18.0) gm/dl Hct (42-50) % MCV (78-100) fl MCH (26-32) pg MCHC (32-36) g/dl RDW (11.5-14.0) % Plt Count (150-450) K/mm3 MPV (6-9.5) fl Sodium (137-145) mmol/L Potassium (3.5-5.1) mmol/L Chloride (98-107) mmol/L Carbon Dioxide (22-30) mmol/L Anion Gap (5-15) MEQ/L BUN (9-20) mg/dL Creatinine (0.66-1.25) mg/dL Estimated GFR ML/MIN Glucose (74-106) mg/dL Calcium (8.4-10.2) mg/dL Total Bilirubin (0.2-1.3) mg/dL AST (17-59) U/L ALT (0-50) U/L Alkaline Phosphatase (38-126) U/L Troponin I < 0.012 < 0.012 < 0.012 (0.000-0.034) ng/mL Serum Total Protein (6.3-8.2) g/dL Albumin (3.5-5.0) g/dL Prealbumin (17.6-36.0) mg/dL 06/21/18 06/21/18 06/21/18 Range/Units 05:23 05:23 05:23 WBC 6.9 (4.0-10.5) K/mm3 RBC 4.50 (4.1-5.6) M/mm3 Hgb 12.9 (12.5-18.0) gm/dl Hct 39.2 L (42-50) % MCV 87.1 (78-100) fl MCH 28.7 (26-32) pg MCHC 32.9 (32-36) g/dl RDW 13.6 (11.5-14.0) % Plt Count 217 (150-450) K/mm3 MPV 9.3 (6-9.5) fl Sodium 140 (137-145) mmol/L Potassium 4.3 D (3.5-5.1) mmol/L Chloride 110 H (98-107) mmol/L Carbon Dioxide 24 (22-30) mmol/L Anion Gap 10.0 (5-15) MEQ/L BUN 9 (9-20) mg/dL Creatinine 0.75 (0.66-1.25) mg/dL Estimated GFR > 60.0 ML/MIN Glucose 85 (74-106) mg/dL Calcium 8.8 (8.4-10.2) mg/dL Total Bilirubin 2.20 H (0.2-1.3) mg/dL AST 19 (17-59) U/L ALT 16 (0-50) U/L Alkaline Phosphatase 53 (38-126) U/L Troponin I (0.000-0.034) ng/mL Serum Total Protein 5.8 L (6.3-8.2) g/dL Albumin 3.3 L (3.5-5.0) g/dL Prealbumin 13.27 L (17.6-36.0) mg/dL - Radiology Impressions Radiology Exams & Impressions: Radiology Procedures Category Date Time Status CHEST 1 VIEW (PORTABLE) Stat Exams 06/20/18 08:12 Completed HEAD WITHOUT CONTRAST [CT] Stat Exams 06/20/18 08:47 Completed Assessment/Plan (1) Polysubstance abuse Current Visit: Yes Status: Acute Code(s): F19.10 - OTHER PSYCHOACTIVE SUBSTANCE ABUSE, UNCOMPLICATED Hospital Summary - Hospital Course Hospital Course: Last Vital Signs Temp 97.6 F 06/21/18 07:24 Pulse 79 06/21/18 12:00 Resp 20 06/21/18 07:24 BP 124/96 06/21/18 07:24 Pulse Ox 97 06/21/18 07:24 Allergies Iodinated Contrast- Oral and IV Dye [Iodinated Contrast Media - IV Dye] Allergy (Verified 11/30/16 08:02) Penicillins Allergy (Verified 11/30/16 08:02) Sulfa (Sulfonamide Antibiotics) Allergy (Verified 11/30/16 08:02) ketorolac tromethamine [From Toradol] Adverse Reaction (Intermediate, Verified 11/30/16 08:02) Muscle Aches tramadol Adverse Reaction (Intermediate, Verified 11/30/16 08:02) Muscle Aches Active Medications Acetaminophen (Tylenol 325 Mg) 650 mg PO Q4H PRN PRN PRN Reason: PAIN AND/OR FEVER Stop: 07/20/18 10:24 Enoxaparin Sodium (Enoxaparin Sodium) 40 mg SQ DAILY [facility] Stop: 07/20/18 19:59 Last Admin: 06/21/18 10:12 Dose: Not Given Potassium Chloride/Sodium Chloride (Sodium Chloride 0.9% W/ 20 Meq Kcl/Liter) 1 ,000 mls @ 125 mls/hr IV .Q8H [facility] Stop: 07/20/18 10:29 Last Admin: 06/21/18 01:10 Dose: 125 mls/hr Lorazepam (Ativan 2 Mg/1 Ml Vial) 1 mg IV Q2H PRN PRN PRN Reason: AGITATION Stop: 07/20/18 10:31 Last Admin: 06/21/18 02:46 Dose: 1 mg Ondansetron HCl (Zofran 4 Mg/2 Ml Vial) 4 mg IV Q6H PRN PRN PRN Reason: NAUSEA/VOMITING Stop: 07/20/18 10:24 Intake & Output 06/21/18 06/22/18 11:59 11:59 Intake Total 3863 Output Total 1100 Balance 2763 Orders 06/21/18 07:36 Tele-Health Consult ROUTINE 06/21/18 10:30 Miscellaneous Nursing Order ROUTINE 06/21/18 Breakfast Regular Diet Lab Tests 06/20/18 06/20/18 06/20/18 14:10 17:15 20:18 WBC RBC Hgb Hct MCV MCH MCHC RDW Plt Count MPV Sodium Potassium Chloride Carbon Dioxide Anion Gap BUN Creatinine Estimated GFR Glucose Calcium Total Bilirubin AST ALT Alkaline Phosphatase Troponin I < 0.012 < 0.012 < 0.012 Serum Total Protein Albumin Prealbumin 06/21/18 06/21/18 06/21/18 05:23 05:23 05:23 WBC 6.9 RBC 4.50 Hgb 12.9 Hct 39.2 L MCV 87.1 MCH 28.7 MCHC 32.9 RDW 13.6 Plt Count 217 MPV 9.3 Sodium 140 Potassium 4.3 D Chloride 110 H Carbon Dioxide 24 Anion Gap 10.0 BUN 9 Creatinine 0.75 Estimated GFR > 60.0 Glucose 85 Calcium 8.8 Total Bilirubin 2.20 H AST 19 ALT 16 Alkaline Phosphatase 53 Troponin I Serum Total Protein 5.8 L Albumin 3.3 L Prealbumin 13.27 L - Vitals & Intake/Output Vital Signs: Vital Signs Temperature 97.6 F 06/21/18 07:24 Pulse Rate 79 06/21/18 12:00 Respiratory Rate 20 06/21/18 07:24 Blood Pressure 124/96 06/21/18 07:24 O2 Sat by Pulse Oximetry 97 06/21/18 07:24 Oxygen-Last Documented O2 Percentage 2 Liters = 28% Intake & Output: Intake & Output 06/19/18 06/20/18 06/21/1806/22/19 11:59 11:59 11:59 11:59 Intake Total 3863 Output Total 1100 Balance 2763 Weight 81 kg - Lab Result Diagrams: 06/21/18 05:23 06/21/18 05:23 Lab Results-Last 24 Hrs: Lab Results-Last 24 Hours 06/20/18 06/20/18 06/20/18 Range/Units 14:10 17:15 20:18 WBC (4.0-10.5) K/mm3 RBC (4.1-5.6) M/mm3 Hgb (12.5-18.0) gm/dl Hct (42-50) % MCV (78-100) fl MCH (26-32) pg MCHC (32-36) g/dl RDW (11.5-14.0) % Plt Count (150-450) K/mm3 MPV (6-9.5) fl Sodium (137-145) mmol/L Potassium (3.5-5.1) mmol/L Chloride (98-107) mmol/L Carbon Dioxide (22-30) mmol/L Anion Gap (5-15) MEQ/L BUN (9-20) mg/dL Creatinine (0.66-1.25) mg/dL Estimated GFR ML/MIN Glucose (74-106) mg/dL Calcium (8.4-10.2) mg/dL Total Bilirubin (0.2-1.3) mg/dL AST (17-59) U/L ALT (0-50) U/L Alkaline Phosphatase (38-126) U/L Troponin I < 0.012 < 0.012 < 0.012 (0.000-0.034) ng/mL Serum Total Protein (6.3-8.2) g/dL Albumin (3.5-5.0) g/dL Prealbumin (17.6-36.0) mg/dL 06/21/18 06/21/18 06/21/18 Range/Units 05:23 05:23 05:23 WBC 6.9 (4.0-10.5) K/mm3 RBC 4.50 (4.1-5.6) M/mm3 Hgb 12.9 (12.5-18.0) gm/dl Hct 39.2 L (42-50) % MCV 87.1 (78-100) fl MCH 28.7 (26-32) pg MCHC 32.9 (32-36) g/dl RDW 13.6 (11.5-14.0) % Plt Count 217 (150-450) K/mm3 MPV 9.3 (6-9.5) fl Sodium 140 (137-145) mmol/L Potassium 4.3 D (3.5-5.1) mmol/L Chloride 110 H (98-107) mmol/L Carbon Dioxide 24 (22-30) mmol/L Anion Gap 10.0 (5-15) MEQ/L BUN 9 (9-20) mg/dL Creatinine 0.75 (0.66-1.25) mg/dL Estimated GFR > 60.0 ML/MIN Glucose 85 (74-106) mg/dL Calcium 8.8 (8.4-10.2) mg/dL Total Bilirubin 2.20 H (0.2-1.3) mg/dL AST 19 (17-59) U/L ALT 16 (0-50) U/L Alkaline Phosphatase 53 (38-126) U/L Troponin I (0.000-0.034) ng/mL Serum Total Protein 5.8 L (6.3-8.2) g/dL Albumin 3.3 L (3.5-5.0) g/dL Prealbumin 13.27 L (17.6-36.0) mg/dL - Radiology Exams Ordered Rad Exams-Entire Visit: Radiology Procedures Category Date Time Status CHEST 1 VIEW (PORTABLE) Stat Exams 06/20/18 08:12 Completed HEAD WITHOUT CONTRAST [CT] Stat Exams 06/20/18 08:47 Completed - Procedures and Test Procedures and Tests throughout Hospitalization: Therapy Orders & Screens 06/20/18 10:25 Oxygen Nasal Cannula 2 lpm Comment: - Discharge Discharge Date: 06/21/18 Disposition: Home, Self-Care Condition: Stable Prescriptions: No Action No Reportable Medications [No Reported Medications] Instructions: Drug Abuse and Drug Addiction (DC) Follow up with: ANTONIO HARRIS [ACTIVE STAFF] - 1 Week
[2018-06-21 12:30] VITALS: BP 157/92; PULSE 87; O2SAT 99
[2018-06-21] MEDS ORDERED: ENOXAPARIN SODIUM SQ SCH (20:00)
--- NOTE | 2018-06-23 07:43 | HP ---
CHIEF COMPLAINT: Bath salts abuse. HISTORY OF PRESENT ILLNESS: The patient has a history of polysubstance abuse who was found in a residence early this morning. The police was called to the home and the patient was taken to the emergency room where he was having audible and visual hallucinations at that time. He was unaware of how he arrived at the emergency room. The patient has been sedated with Ativan IV since that time. The patient however at this point is unable to give a history otherwise. The patient is currently in the ICU monitored. PHYSICAL EXAMINATION: His vital signs initially in the emergency room was temperature 98.7F, pulse 120, respiratory rate 24, blood pressure 148/92. O2 saturation 98%. HEENT: Appears to be normocephalic. No evidence of trauma was noted. NECK: Supple without lymphadenopathy, thyromegaly or JVD. CHEST: Clear to auscultation with good air movement bilaterally. HEART: Regular rate and rhythm without murmurs, rubs or gallops heard. ABDOMEN: Scaphoid with no palpable masses. EXTREMITIES: Without cyanosis, clubbing or edema. NEUROLOGIC: The patient is currently deeply sedated with the Ativan in the ICU monitoring of blood pressure, heart rate and O2 saturations. LAB DATA AND TESTS: The patient's initial laboratory studies showed his troponins to be less than 0.012. He had urine with specific gravity 1.027. He was otherwise with 30 on urine protein, 2 to 5 white blood cells and 6 to 10 red blood cells. His glucose is 102, BUN 17, creatinine 1.03. Potassium slightly low at 3.4. Liver enzymes were normal. Acetaminophen, salicylates and ETOH were all negative. International normalized ratio 1.24. CBC was entirely normal. Urine drug screen was positive for amphetamines. Chest x-ray showed few incidental calcified granulomas but otherwise was negative. CT scan of the brain was limited due to motion artifact. No gross intracranial abnormalities were noted. ASSESSMENT: A patient with injection of bath salts, agitation and history of polysubstance abuse. The patient has been sedated with Ativan as he was quite agitated in the emergency room and being kept sedated since that time. We will continue IV fluids and close monitoring with I&O's. We will plan to stop the sedation within the next 24 hours and allow him to wake up and hopefully by that time he will be much improved.
== END 2018-06-21 15:00 | disposition home or self-care (01) ==
LOC: ED 08:00 → ICU 10:46 → INTOOBSV 10:46
PROVIDERS: ADMIT Family Medicine; ATTEND Family Medicine
DX: F19.10 Other psychoactive substance abuse, uncomplicated (principal); R45.1 Restlessness and agitation
CPT/HCPCS: 36415; 70450; 71045; 80053; 80307; 81001; 82962; 84134; 84484; 85025; 85027; 85610; 90791; 93005; 93041; 96360; 96361; 96374; 99285; G0378; G0480; G0481; P9612; Q3014; 96376; J1650; J2060

== ENCOUNTER 2019-05-08 15:53 | Emergency (ER) | payer OTHER ==
[2019-05-08] MEDS ORDERED: Hydromorphone 1 mg/ml Ampule IM ONE (16:06)
[2019-05-08] MEDS ORDERED: Hydromorphone 1 mg/ml Ampule ONE (16:21)
[2019-05-08] MEDS ORDERED: TORAdol 30 mg Injection ONE ×2 (16:21→16:24)
[2019-05-08] MEDS: TORAdol 30 mg Injection IM ONE ×2 (16:23→16:31)
--- NOTE | 2019-05-08 16:36 | ERPHSYRPT ---
- History of Present Illness Time Seen by Provider: 05/08/19 16:10 Historian: patient Exam Limitations: no limitations Patient Subjective Stated Complaint: Pt was cutting wood and a tree came back and hit him in the left back ribs, left arm pain, left chest pain, rates pain Triage Nursing Assessment: Pt brought to the ER by his mom, pt appears to be in significant pain, left posterior lung sounds obtunded, pt reports the bottom of his chest feels "hot", left arm pain that is worse at the distal forearm, hypertensive, tachycardic, left medial back has reddened area, no bruising, denies losing consciousness Physician History: She had trauma by heavy weighted log of a tree hitting him in his left posterior chest wall. Timing/Duration: hour(s) (0.5), constant, sudden Activities at Onset: activity, other (Direct impact by heavy tree) Quality: stabbing Location: back (Posterior thoracic chest) Chest Pain Radiation: no radiation Severity of Pain-Max: severe Severity of Pain-Current: severe Modifying Factors: Improves With: rest. Worsens With: breathing, movement, palpation, change in position Associated Symptoms: No nausea, No vomiting, No palpitations, No abdominal pain , No shortness of breath, No cough, No diaphoresis, No fever, No fatigue, No weakness, No syncope, No rash, No headache, No dizziness, No back pain Prior Chest Pain/Cardiac Workup: no prior chest pain, no prior cardiac workup Nitro Today/Relief: no nitro taken today Aspirin Treatment Today: no aspirin today Allergies/Adverse Reactions: Iodinated Contrast Media [Iodinated Contrast Media - IV Dye] Allergy (Verified 05/08/19 16:11) Penicillins Allergy (Verified 05/08/19 16:11) Sulfa (Sulfonamide Antibiotics) Allergy (Verified 05/08/19 16:11) ketorolac tromethamine [From Toradol] Adverse Reaction (Intermediate, Verified 05/08/19 16:11) Muscle Aches tramadol Adverse Reaction (Intermediate, Verified 05/08/19 16:11) Muscle Aches Home Medications: No Reportable Medications [No Reported Medications] 06/20/18 [History] Hx Tetanus, Diphtheria Vaccination/Date Given: Yes Hx Influenza Vaccination/Date Given: No Hx Pneumococcal Vaccination/Date Given: No - Review of Systems Constitutional: No Fever, No Chills Eyes: No Symptoms, No Eye Pain, No Vision Changes Ears, Nose, & Throat: No Symptoms, No Ear Pain, No Nose Congestion, No Epistaxis , No Mouth Pain, No Loose Teeth, No Painful Swallowing Respiratory: No Cough, No Dyspnea Cardiac: No Edema, No Palpitations, No Syncope Abdominal/Gastrointestinal: No Abdominal Pain, No Nausea, No Vomiting, No Diarrhea Genitourinary Symptoms: No Dysuria, No Hematuria, No Flank Pain Musculoskeletal: No Back Pain, No Neck Pain Skin: No Rash, No Other (Negative lacerations) Neurological: No Dizziness, No Focal Weakness, No Headache, No Paralysis, No Parasthesia, No Sensory Changes, No Tremors Psychological: No Symptoms Endocrine: No Symptoms All Other Systems: Reviewed and Negative - Past Medical History Pertinent Past Medical History: Yes Neurological History: No Pertinent History ENT History: No Pertinent History Cardiac History: No Pertinent History Respiratory History: No Pertinent History Endocrine Medical History: No Pertinent History Musculoskeletal History: No Pertinent History GI Medical History: Hernia, Irritable Bowel History: No Pertinent History Psycho-Social History: Anxiety, Depression Male Reproductive Disorders: No Pertinent History Other Medical History: mrsa - Past Surgical History Past Surgical History: Yes Neuro Surgical History: No Pertinent History Cardiac: No Pertinent History Respiratory: No Pertinent History Gastrointestinal: Hernia Repair Genitourinary: No Pertinent History Musculoskeletal: No Pertinent History Male Surgical History: No Pertinent History - Social History Smoking Status: Never smoker Exposure to second hand smoke: No Alcohol Use: Socially Drug Use: marijuana, methamphetamines Patient Lives Alone: Yes Significant Family History: no pertinent family hx - Nursing Vital Signs Nursing Vital Signs: Initial Vital Signs Temperature 97.7 F 05/08/19 16:00 Pulse Rate 115 H 05/08/19 16:00 Blood Pressure 168/107 05/08/19 16:00 O2 Sat by Pulse Oximetry 98 05/08/19 16:00 Pain Scale Pain Intensity 6 - Physical Exam General Appearance: no apparent distress, alert Eye Exam: PERRL/EOMI, eyes nml inspection Ears, Nose, Throat Exam: normal ENT inspection, pharynx normal, moist mucous membranes Neck Exam: normal inspection, non-tender, supple, full range of motion, No meningismus, No limited range of motion, No lymphadenopathy Respiratory Exam: normal breath sounds, chest tenderness (Left posterior/ lateral chest wall), lungs clear, airway intact, No respiratory distress, No diminished breath sounds, No accessory muscle use, No crackles/rales Cardiovascular Exam: regular rate/rhythm, normal heart sounds, normal peripheral pulses, capillary refill <2 sec Gastrointestinal/Abdomen Exam: soft, normal bowel sounds, No tenderness, No distention, No mass, No guarding, No rebound Back Exam: normal inspection, No CVA tenderness, No vertebral tenderness Extremity Exam: normal inspection, normal range of motion Neurologic Exam: alert, oriented x 3, cooperative, clinical informaticist II-XII nml as tested, normal mood/affect, sensation nml, No motor deficits Skin Exam: normal color, warm, dry SpO2 Interpretation: normal SpO2: 98 O2 Delivery: Room Air - CT Exams Chest CT Interpretation: Other (Per radiology interpretation: Left 8 and 9 rib fractures with tiny hemothorax and minimal subcutaneous emphysema. No pneumothorax. Incidental nonobstructing left renal micro calculus and evidence for old granulomatous disease. No suspicious pulmonary mass, infiltrate or consolidation.) Ordered Tests: Active Orders 24 hr Category Date Time Status CHEST WITHOUT CONTRAST [CT] Stat Exams 05/08/19 16:07 Completed UA W/RFX UR CULTURE Stat Lab 05/08/19 16:40 Completed Medication Summary Discontinued Medications Generic Name Dose Route Start Last Admin Trade Name Freq PRN Reason Stop Dose Admin Hydromorphone HCl 1 mg 05/08/19 16:06 05/08/19 16:23 Hydromorphone 1 Mg/Ml Ampule IM 05/08/19 16:07 1 mg STAT ONE Administration Hydromorphone HCl Confirm 05/08/19 16:21 Hydromorphone 1 Mg/Ml Ampule Administered 05/08/19 16:22 Dose 1 mg .ROUTE .STK-MED ONE Ketorolac Tromethamine 60 mg 05/08/19 16:06 05/08/19 16:31 Toradol 30 Mg Injection IM 05/08/19 16:07 Not Given STAT ONE Ketorolac Tromethamine Confirm 05/08/19 16:21 Toradol 30 Mg Injection Administered 05/08/19 16:22 Dose 30 mg .ROUTE .STK-MED ONE Ketorolac Tromethamine Confirm 05/08/19 16:24 Toradol 30 Mg Injection Administered 02/14/20 16:25 Dose 30 mg .ROUTE .STK-MED ONE Lab/Rad Data: Laboratory Results 05/08/19 Range/Units 16:40 Urine Color YELLOW (YELLOW) Urine Appearance SLIGHTLY CLOUDY (CLEAR) Urine pH 5.0 (5-6) Ur Specific [place] 1.029 (1.005-1.025) Urine Protein 30 (Negative) Urine Ketones NEGATIVE (NEGATIVE) Urine Blood NEGATIVE (0-5) Haja/ul Urine Nitrite NEGATIVE (NEGATIVE) Urine Bilirubin NEGATIVE (NEGATIVE) Urine Urobilinogen 2 (0-1) mg/dL Ur Leukocyte Esterase NEGATIVE (NEGATIVE) Urine WBC (Auto) NONE (0-5) /HPF Urine RBC (Auto) NONE (0-2) /HPF U Hyaline Cast (Auto) 0-2 (0-2) /LPF U Epithel Cells (Auto) NONE (FEW) /HPF Urine Bacteria (Auto) NONE (NEGATIVE) /HPF Urine Mucus (Auto) MODERATE (NEGATIVE) /HPF Urine Culture Reflexed NO (NO) Urine Glucose NEGATIVE (NEGATIVE) mg/dL - Progress Progress: re-examined Air Movement: good Progress Note: 05/08/19 17:19 Discuss[address] the patient with Dr. Tamayo, trauma surgeon at [facility]. Dr. Coleman accepted the patient for transfer. 05/08/19 17:30 Patient's pain is much better controlled. Patient is having any respiratory distress. Blood Culture(s) Obtained: No Antibiotics given: No Counseled pt/family regarding: lab results, diagnosis, need for follow-up, rad results - Departure Departure Disposition: Transfer ([facility] in [place], [place]) Clinical Impression: Hemothorax on left, Elevated blood pressure reading without diagnosis of hypertension Multiple rib fractures Qualifiers: Encounter type: initial encounter Fracture type: closed Laterality: left Qualified Code(s): S22.42XA - Multiple fractures of ribs, left side, initial encounter for closed fracture Condition: Fair Critical Care Time: Yes Critical Care Time(excluding separately billable procedures): Critical 30-74 mins Referrals: ELISE SAUER [Primary Care Provider] - Instructions: Rib Fracture (DC)
[2019-05-08 17:02] LABS: Appearance SLIGHTLY CLOUDY (CLEAR); Bilirubin NEGATIVE (NEGATIVE); Blood NEGATIVE Ery/ul (0-5); Glucose NEGATIVE (NEGATIVE); Hyaline Casts 0-2 /LPF (0-2); Ketones NEGATIVE (NEGATIVE); Leukocyte Esterase NEGATIVE (NEGATIVE); Mucus MODERATE /HPF (NEGATIVE); Nitrite NEGATIVE (NEGATIVE); Protein,Urine Dip 30 (Negative); Specific Gravity 1.029 (1.005-1.025); Urobilinogen 2 mg/dL (0-1)
--- NOTE | 2019-05-08 17:09 | XRAY ---
Indication: Left rib pain following trauma. Multiple contiguous axial images obtained through the chest without contrast as ordered. Comparison: None There is minimally displaced posterior-lateral left 8 rib fracture and nondisplaced adjacent 9 rib fracture with minimal subcutaneous emphysema and tiny hemothorax. No pneumothorax. Minimal bilateral dependent atelectasis and small medial left lower lobe calcified granuloma. No suspicious pulmonary mass, infiltrate, or consolidation. Heart is not enlarged. Aorta is normal in course and caliber. [place] subcarinal calcified nodes. No pathologic mediastinal lymphadenopathy. Remaining bony thorax intact. Limited upper abdomen demonstrates nonobstructing left renal micro-calculus and a few tiny calcified splenic granulomas. Impression: 1. Left 8 and 9 rib fractures with tiny hemothorax. 2. Incidental nonobstructing left renal micro-calculus and evidence for old granulomatous disease.
[2019-05-08 17:47] VITALS: O2SAT 98
[2019-05-08 18:10] VITALS: BP 137/107; PULSE 108
== END 2019-05-08 18:15 | disposition short-term general hospital (02) ==
LOC: ED 15:53
DX: S22.42XA Multiple fractures of ribs, left side, initial encounter for closed fracture (principal); S27.1XXA Traumatic hemothorax, initial encounter; W20.8XXA Other cause of strike by thrown, projected or falling object, initial encounter; Y93.H2 Activity, gardening and landscaping; R03.0 Elevated blood-pressure reading, without diagnosis of hypertension; R07.89 Other chest pain; M79.632 Pain in left forearm
CPT/HCPCS: 71250; 81001; 96372; 99284; 99291; J1170; J1885